=== PATIENT | female | born 2000 | race Caucasian/White ===

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

== ENCOUNTER 2020-07-04 11:38 | Outpatient (RCR) | payer OTHER, SELFPAY | END 2020-08-13 23:59 | LOC: IMMUN 11:38 | PROVIDERS: PCP Family Medicine; Referring Provider Family Medicine; Visit Provider Family Medicine | DX: Z23 Encounter for immunization (principal) | CPT/HCPCS: 0001A; 0002A; 91300 ==

== ENCOUNTER 2020-10-04 20:54 | Emergency (ER) | payer OTHER, SELFPAY ==
[2020-10-04 20:55] VITALS: BP 122/76; PULSE 76; RESP 15; TEMP 35.8; O2SAT 99; BMI 20.1
[2020-10-04 21:50] LABS: Absolute Lymphocyte Count 1.24 X10^3/uL (0.83-4.51); Basophil# 0.02 X10^3/uL; Basophil% 0.3 % (0-1); Eosinophils% 2.8 % (0-5); Hematocrit 37.9 % (37-47); Hemoglobin 12.2 g/dL (12.0-15.0); Lymphocyte # 1.24 X10^3/ul (0.83-4.51); Lymphocyte % 17.2 % (19-41); Mean Corp Hgb Conc 32.2 g/dL (32-36); Mean Corpuscular Volume 86.9 fL (81-99); Mean Platelet Vol. 10.1 fl (6.2-12.0); Monocyte# 0.76 X10^3/uL; Monocyte% 10.5 % (0-10); NRBC Flagged by Analyzer 0 % (0-5); Neutrophil # 4.96 X10^3/uL (2.7-7.7); Neutrophil % 68.8 % (47-70); Platelet Count 301 K/mm3 (150-450); RBC Distribution Width CV 13.2 % (11.6-14.6); RBC Distribution Width SD 42.5 fl (35.1-43.9); Red Blood Count 4.36 M/mm3 (4.2-5.4); White Blood Count 7.2 K/mm3 (4.4-11.0)
[2020-10-04 21:57] LABS: Internal QC Validated? YES +Cl - CLEAR BKGD; Pregnancy, Serum, hCG Quali. NEGATIVE Negative
[2020-10-04 22:04] LABS: Anion Gap 5 (5-15); BUN 6 mg/dL (7-18); BUN/Creat Ratio 10.6 RATIO (10-20); Calcium,Total 8.2 mg/dL (8.5-10.1); Chloride 110 mmol/L (98-107); Creatinine, Serum 0.57 mg/dL (0.55-1.02); EST Glomerular Filtration Rate 144 mL/min (>60); Est Glom Filt Rate - Afr Amer 174 mL/min (>60); Estimated Creatinine Clearance 140.92 ml/min; Glucose 79 mg/dL (74-106); Potassium 3.1 mmol/L (3.5-5.1); Sodium Level 139 mmol/L (136-145)
[2020-10-04 22:17] LABS: Bacteria 0 SEEN /hpf (None Seen); Mucous, Urine 0 SEEN /hpf (<or=2+); Red Blood Cells-Urine 0 SEEN /hpf (0-5); White Blood Cells 0 SEEN /hpf (0-5)
[2020-10-04 22:18] LABS: Color, Urine Yellow (Yellow); Glucose, Dipstick Normal (Normal); Ketone-Dipstick Negative (Negative); Leukocyte Esterase-Dipstick 25 /ul (Negative); Nitrite-Dipstick Negative (Negative); Occult Blood-Urine Negative /ul (Negative); Protein-Dipstick Negative (Negative); Urine Bilirubin Dipstick Negative (Negative); Urine Clarity Clear (Clear); Urine Urobilinogen Normal (Normal); Urine pH 6.5 (5.0 - 8.0)
[2020-10-04 22:26] LABS: Squamous Epithelial Cells - UA 0-5 SEEN /hpf (5-10)
--- NOTE | 2020-10-04 22:28 | CT_ITS ---
STUDY: CT ABDOMEN AND PELVIS WITH CONTRAST REASON FOR EXAM: Female, 20 years old. rlq pain RADIATION DOSAGE (If Supplied By Facility): CTDIvol = ( 9.96 ) mGy, DLP = ( 340.16 ) mGycm TECHNIQUE: Transaxial images were obtained from the dome of the diaphragm to the symphysis pubis without oral contrast. IV 100mL Isovue-300 was administered. Sagittal and coronal images were reconstructed. Individualized dose optimization techniques were used for this CT. COMPARISON: None. FINDINGS: Lung bases are clear. Heart size is normal. The liver is unremarkable. The gallbladder is unremarkable. Spleen is normal. Pancreas is unremarkable. The adrenal glands are normal. The kidneys are unremarkable. No stones or hydronephrosis. The aorta is normal in caliber. There is no free fluid, free air or organized collection. No bowel obstruction or inflammatory change. Normal appendix. Urinary bladder is unremarkable. Uterus and adnexae are unremarkable. Normal abdominal wall. Normal osseous structures. CT/Abdomen/Pelvis W IV Cont ONLY IMPRESSION: Normal enhanced CT of the abdomen and pelvis. Electronically Signed: Kamilla Donahue MD at 23:41 EDT Tel , Service support ,
--- NOTE | 2020-10-04 22:29 | EDS_ITS ---
HPI HPI - GI History of Present Illness Chief Complaint: Abd Pain Informant: patient and parent Abdominal Pain/Flank Pain Onset: Days (3) Context: Gradual Onset Timing: Continuous and Waxes and wanes Quality: Aching and Cramping Location: - (Periumbilical or just below) Current Severity: Severe Maximum Severity: Severe Worsened by: Nothing Relieved by: Nothing Nausea/Vomiting/Emesis GI Symptom: Positive for Nausea; Negative for Vomiting Diarrhea/Melena/Hematochezia GI Symptom: Positive for Diarrhea; Negative for Melena and Hematochezia Onset: Days (3) Stool Quality: Positive for Watery; Negative for Black, Maroon and BRB per rectum Severity: Moderate (5-10 episodes per day approximately) Associated Symptoms Associated Symptoms: Negative for Dysuria, Frequency, Hematuria and Urgency Narrative Narrative: No fevers or chills. Periumbilical abdominal discomfort without migration or radiation, some nausea, but more diarrhea over the last several days. Was on antibiotics around 7 or 8 weeks ago after had wisdom teeth removed, she cannot remember which one. No history of C. difficile. No recent ground water ingestion, camping, travel out of the area, or suspicious food ingestion that she can think of. No uncooked meats. She is healthy otherwise. No history of any abdominal surgeries. Urinating normally. No vomiting. PFSH PFSH no medical history Home Medications metoclopramide HCl 10 mg PO Q6H PRN PRN #20 tab 10/05/20 [Rx Last Taken Unknown] tramadol 50 mg PO Q4H PRN PRN 2 Days #12 tab 10/05/20 [Rx Last Taken Unknown] Allergy/AdvReac Type Severity Reaction Status Date / Time No Known Allergies Allergy Verified 10/04/20 20:59 Social History Smoking Status: Never smoker ROS ROS ED Constitutional Constitutional ED: Reports malaise; Denies chills or fever(s) Eyes Eyes: Denies change in vision or diplopia ENT ENT ED: Denies rhinorrhea or sore throat Cardiovascular Cardiovascular: Denies chest pain or palpitations Respiratory/Chest Respiratory/Chest: Denies cough or dyspnea Gastrointestinal Gastrointestinal: Reports as per HPI, abdominal pain, diarrhea and nausea; Denies vomiting Genitourinary Genitourinary ED: Denies dysuria or hematuria Musculoskeletal Musculoskeletal: Denies back pain or neck pain Integumentary Denies abscess or rash Neurologic Neurologic: Denies headache(s), paresthesias or weakness Psychiatric Psychiatric: Denies anxiety or suicidal thoughts EXAM Physical Exam Const Vital Signs: 10/04/20 20:55 Temperature 96.5 F L Temperature Source Temporal Pulse Rate 76 Respiratory Rate 15 Blood Pressure 122/76 H Blood Pressure Mean 91 Pulse Ox 99 Oxygen Delivery Method Room Air Positive well nourished and well developed General Appearance ED: well developed and NAD HEENT Reports moist mucous membranes normocephalic and atraumatic Eyes PERRL and EOMs intact bilaterally Neck full ROM and supple Resp normal respiratory effort and clear to auscultation bilaterally Cardio regular rate, regular rhythm and no murmurs GI non-distended GI Narrative: Moderately tender right lower quadrant no other areas of te nderness. McBurney's point included. No guarding or rebound. Auscultation: normoactive bowel sounds Palpation: soft Back/Spine no CVA tenderness General Back: other FROM Extremity normal to inspection General Extremety ED: Negative for edema, pulses abnormal or tenderness General Extremity: Negative for edema or pulses abnormal Neuro oriented x3, CN's II-XII intact bilaterally and no sensory deficits noted Sensorium / Orientation: awake and alert Motor Exam: strength 5/5 throughout Skin no rashes or lesions noted and no wounds MDM MDM MDM Narrative Medical decision making narrative: Labs obtained in addition to a CT with IV contrast given her tenderness in the right lower quadrant although this is not a typical appendicitis history; the CT is normal which is reassuring. Her labs show a slight hypokalemia likely related to all of the diarrhea, but the rest of her work-up is unremarkable. She was initially treated with IV fluids, Zofran, dicyclomine, she states it did not help at all. Therefore she will be given Toradol, Reglan, morphine, and potassium. The plan is for her to try to provide a stool sample prior to discharge. C. difficile, Giardia, and enteric bacterial panel will be ordered and obtained, however it is midnight and those are unlikely to come back tonight. Supportive care is advised and she will be given prescriptions for nausea and pain and advised to follow-up with her doctor for testing results unless she is called with them prior. Lab Data Attestation: I reviewed the patient's lab results. Labs: Laboratory Results - last 24 hr 10/04/20 10/04/20 10/04/20 21:40 21:40 21:40 WBC 7.2 RBC 4.36 Hgb 12.2 Hct 37.9 MCV 86.9 MCH 28.0 MCHC 32.2 RDW Std Deviation 42.5 RDW Coeff of [place] 13.2 Plt Count 301 MPV 10.1 Immature Gran % (Auto) 0.400 Neut % (Auto) 68.8 Lymph % (Auto) 17.2 L [place] % (Auto) 10.5 H Eos % (Auto) 2.8 Baso % (Auto) 0.3 Absolute Neuts (auto) 5.0 Absolute Lymphs (auto) 1.24 Nucleated RBC % 0 Sodium 139 Potassium 3.1 L Chloride 110 H Carbon Dioxide 24.0 Anion Gap 5 BUN 6 L Creatinine 0.57 Estim Creat Clear Calc 140.92 Est GFR (MDRD) Af Amer 174 Est GFR (MDRD) Non-Af 144 BUN/Creatinine Ratio 10.6 Glucose 79 Calcium 8.2 L Serum , Qual NEGATIVE Urine Color Urine Clarity Urine pH Ur Specific [place] Urine Protein Urine Glucose (UA) Urine Ketones Urine Occult Blood Urine Nitrite Urine Bilirubin Urine Urobilinogen Ur Leukocyte Esterase Urine RBC Urine WBC Ur Squamous Epith Cells Urine Bacteria Urine Mucus 10/04/20 22:10 WBC RBC Hgb Hct MCV MCH MCHC RDW Std Deviation RDW Coeff of [place] Plt Count MPV Immature Gran % (Auto) Neut % (Auto) Lymph % (Auto) [place] % (Auto) Eos % (Auto) Baso % (Auto) Absolute Neuts (auto) Absolute Lymphs (auto) Nucleated RBC % Sodium Potassium Chloride Carbon Dioxide Anion Gap BUN Creatinine Estim Creat Clear Calc Est GFR (MDRD) Af Amer Est GFR (MDRD) Non-Af BUN/Creatinine Ratio Glucose Calcium Serum , Qual Urine Color Yellow Urine Clarity Clear Urine pH 6.5 Ur Specific [place] 1.010 Urine Protein Negative Urine Glucose (UA) Normal Urine Ketones Negative Urine Occult Blood Negative Urine Nitrite Negative Urine Bilirubin Negative Urine Urobilinogen Normal Ur Leukocyte Esterase 25 H Urine RBC 0 SEEN Urine WBC 0 SEEN Ur Squamous Epith Cells 0-5 SEEN Urine Bacteria 0 SEEN Urine Mucus 0 SEEN Radiography Diagnostic Testing: Radiology Impression Abdomen/Pelvis CT 10/04/20 22:28 IMPRESSION: Normal enhanced CT of the abdomen and pelvis. Electronically Signed: Kamilla Donahue MD at 23:41 EDT Tel , Service support , Discharge Plan Triage Chief Complaint: Abd Pain ED Provider: Roland Mason Dx/Rx/DC Orders Clinical Impression: Acute diarrhea, Periumbilical abdominal pain Instructions: ED Diarrhea, Unknown Cause Prescriptions: New metoclopramide HCl [metoclopramide HCl] 10 MG tablet 10 mg PO Q6H PRN PRN (Reason: nausea and vomiting) Qty: 20 RF: 0 tramadol 50 MG tablet 50 mg PO Q4H PRN PRN (Reason: Pain) 2 Days Qty: 12 RF: 0 Primary Care Provider: Gavi Palacios Referrals: Gavi Palacios MD [Primary Care Provider] - 1-2 Days if not improving (For reevaluation and review of test results and further treatment if indicated) Disposition Disposition: Home, Self Care
[2020-10-04] MEDS: Dicyclomine 10 MG Capsule 20 MG PO (22:36)
[2020-10-04] MEDS: 0.9% Normal Saline 1,000 ML 999 ML IV (22:36)
[2020-10-04] MEDS: Ondansetron 4 MG/2 ML Vial IV (22:36)
[2020-10-05] MEDS: Metoclopramide 10 MG/2 ML Vial 5 MG IV (00:10)
[2020-10-05] MEDS: Ketorolac 30 MG/ML Syringe IV (00:11)
[2020-10-05] MEDS: Morphine 4 MG/ML Syringe IV (00:11)
[2020-10-05] MEDS: Potassium Chloride Oral Tablet 20 MEQ 40 MEQ PO (00:13)
[2020-10-05 00:35] VITALS: PULSE 68; RESP 15; O2SAT 99
== END 2020-10-05 00:36 | disposition home or self-care (01) ==
PROVIDERS: Emergency Provider Emergency Medicine; PCP Family Medicine
DX: R10.33 Periumbilical pain (principal); R19.7 Diarrhea, unspecified; R11.0 Nausea
CPT/HCPCS: 74177; 80048; 81001; 84703; 85025; 96361; 96374; 96375; 99284; J7030; Q9967; A4216; J2405

== ENCOUNTER → 2021-10-17 | Outpatient (CLI) | payer OTHER, SELFPAY ==
[2021-10-20 08:27] LABS: Hepatitis B Surface Antibody Reactive
== END | disposition home or self-care (01) ==
LOC: MTLAB 11:34
PROVIDERS: PCP Family Medicine; Referring Provider Family Medicine; Visit Provider Family Medicine
DX: Z23 Encounter for immunization (principal)
CPT/HCPCS: 36415; 86706

== ENCOUNTER → 2023-10-01 | Outpatient (CLI) | payer OTHER, SELFPAY ==
[2023-10-01 18:37] LABS: Hepatitis B Surface Antibody Reactive
== END | disposition home or self-care (01) ==
LOC: MTLAB 15:12
PROVIDERS: PCP Family Medicine; Referring Provider Family Medicine; Visit Provider Family Medicine
DX: Z02.0 Encounter for examination for admission to educational institution (principal); Z23 Encounter for immunization
CPT/HCPCS: 36415; 86706

== ENCOUNTER → 2024-01-12 | Outpatient (CLI) | payer OTHER, SELFPAY ==
[2024-01-13 15:09] LABS: EBV Acute VCA IgM < 36.0 U/mL (0.0-35.9)
== END | disposition home or self-care (01) ==
LOC: MTLAB 09:03
PROVIDERS: PCP Family Medicine; Referring Provider Family Medicine; Visit Provider Family Medicine
DX: B27.90 Infectious mononucleosis, unspecified without complication (principal)
CPT/HCPCS: 36415; 86665